=== PATIENT | male | born 1945 | race Caucasian/White ===

== ENCOUNTER → 2017-10-07 | Day surgery (SDC) | payer OTHER ==
[~2017-10-07] VITALS: Ht 182.9 cm; Wt 109.7 kg
[~2017-10-07] MED LIST: AMLO10TA2 PO; ASPI81CH6 CHEW; ATOR80TA45 PO; BENA40TA PO; CHLORHEXIDINE GLUCONATE 2 % 1 PACK (2 CLOTHS) TOPICAL PRN; CHOL1TAB41 PO; CO Q100C9 PO; CORACAP PO; DHEA50TA PO; FLAX1000 PO; FOLI800T PO; FURO20TA PO; GARL1000 PO; GLIM2TAB PO; GLUC500T4 PO; LACTATED RINGER'S 1000 ML IV PRN; LECI12002 PO; METF1000 PO; METO100T PO; METOPROLOL TARTRATE 25 MG TAB PO PRN; OCUVTAB PO; OMEGCAP PO; POVIDONE IODINE 5% (ANTISEPSIS KIT) 4 APPLICATIONS EACH NARE PRN; ROYA1CAP2 PO; SAWCAP2 PO; SITA1TAB2 PO; SODIUM CHLORID 0.9% 500 ML IV PRN; TAMS0.4C4 PO; VITA100T54 PO; VITA500T83 PO; WARF-21 PO; WARF-23 PO; ceFAZolin 2 GM PREMIX 50 ML IV ONE
[2017-10-07 13:54] VITALS: BP 133/68; PULSE 111; RESP 20; TEMP 98.5; O2SAT 97
[2017-10-07 14:03] LABS: AUTOMATED NEUTROPHIL # 5.8 TH/MM3 (1.8-7.7); BASOPHIL % 0.5 % (0.0-2.0); EOSINOPHIL # 0.2 TH/MM3 (0-0.4); HEMATOCRIT 40.1 % (39.0-51.0); HEMOGLOBIN 13.2 GM/DL (13.0-17.0); LYMPH % 10.6 % (9.0-44.0); LYMPHOCYTE # 0.8 TH/MM3 (1.0-4.8); MEAN CELL VOLUME 82.6 FL (80.0-100.0); MEAN CORPUSCULAR HEMOGLOBIN 27.2 PG (27.0-34.0); MEAN PLATELET VOLUME 8.4 FL (7.0-11.0); MONO % 9.2 % (0.0-8.0); MONOCYTE # 0.7 TH/MM3 (0-0.9); NEUT % 77.7 % (16.0-70.0); PLATELET COUNT 199 TH/MM3 (150-450); RED BLOOD COUNT 4.86 MIL/MM3 (4.50-5.90); RED CELL DISTRIBUTION WIDTH 15.2 % (11.6-17.2); WHITE BLOOD COUNT 7.4 TH/MM3 (4.0-11.0)
[2017-10-07 14:13] LABS: INTERNATIONAL NORMALIZED RATIO 1.1 RATIO; PROTHROMBIN TIME - PATIENT 11.2 SEC (9.8-11.6)
[2017-10-07 14:32] LABS: BICARBONATE 23.6 MEQ/L (21.0-32.0); CALCIUM 9.1 MG/DL (8.5-10.1); CREATININE 1.06 MG/DL (0.60-1.30)
--- NOTE | 2017-10-08 20:54 | EKG ---
Date Performed: 10/07/2017 Time Performed: 13:34:47 PTAGE: 71 years EKG: ATRIAL FIBRILLATION WITH RAPID VENTRICULAR RESPONSE ABNORMAL RHYTHM ECG NO PREVIOUS TRACING DOCTOR: Shai Dash Interpretating Date/Time 10/08/2017 20:52:36
== END | disposition home or self-care (01) ==
LOC: HSDC 12:44
PROVIDERS: ATTEND Surgery
DX: M79.9 Soft tissue disorder, unspecified (principal); I48.91 Unspecified atrial fibrillation; I10 Essential (primary) hypertension; E78.5 Hyperlipidemia, unspecified; Z53.9 Procedure and treatment not carried out, unspecified reason; E11.9 Type 2 diabetes mellitus without complications; Z79.84 Long term (current) use of oral hypoglycemic drugs; Z79.01 Long term (current) use of anticoagulants
CPT/HCPCS: 80048; 85025; 85610; 85730; 93005; G0463; 99211

== ENCOUNTER 2017-10-29 05:40 | Observation (INO) | payer OTHER ==
[~2017-10-29] VITALS: Ht 182.9 cm; Wt 109.5 kg
[~2017-10-29 05:40] MED LIST changes: -CHLORHEXIDINE GLUCONATE 2 % 1 PACK (2 CLOTHS) TOPICAL PRN; -LACTATED RINGER'S 1000 ML IV PRN; -METOPROLOL TARTRATE 25 MG TAB PO PRN; -POVIDONE IODINE 5% (ANTISEPSIS KIT) 4 APPLICATIONS EACH NARE PRN; -SODIUM CHLORID 0.9% 500 ML IV PRN; -ceFAZolin 2 GM PREMIX 50 ML IV ONE
[2017-10-29] MEDS ORDERED: CHLORHEXIDINE GLUCONATE 2 % 1 PACK (2 CLOTHS) TOPICAL PRN (06:30)
[2017-10-29] MEDS ORDERED: LACTATED RINGER'S 1000 ML IV PRN (06:30)
[2017-10-29] MEDS ORDERED: SODIUM CHLORID 0.9% 500 ML IV PRN (06:30)
[2017-10-29] MEDS ORDERED: POVIDONE IODINE 5% (ANTISEPSIS KIT) 4 APPLICATIONS EACH NARE PRN (06:30)
[2017-10-29] MEDS ORDERED: ceFAZolin 2 GM in NS 100 ML IV SCH (06:30)
[2017-10-29] MEDS ORDERED: METOPROLOL TARTRATE 25 MG TAB PO PRN (06:30)
[2017-10-29 06:54] LABS: INTERNATIONAL NORMALIZED RATIO 1.1 RATIO; PROTHROMBIN TIME - PATIENT 10.9 SEC (9.8-11.6)
[2017-10-29] MEDS ORDERED: ACETAMINOPHEN 1000 MG/100 ML 100 ML IV ONE (07:00)
[2017-10-29] MEDS ORDERED: BUPIVACAINE/EPINEPHRINE 0.5% 50 ML VIAL ONE (07:06)
[2017-10-29] MEDS ORDERED: LIDOCAINE 1%/EPINEPHrine 1:100,000 SOLN 30 ML VIAL ONE (07:07)
[2017-10-29] MEDS ORDERED: BUPIVACAINE LIPOSO PF 1.3% INJ 20 ML in SODIUM CHLORIDE 0.9% INJ 40 ML IRRIGATION SCH (08:45)
[2017-10-29] MEDS ORDERED: ACETAMINOPHEN/HYDROcodone 325 MG/5 MG TAB PO PRN (11:00)
[2017-10-29] MEDS ORDERED: ONDANSETRON HCL 4 MG/2 ML VIAL IV PUSH PRN (11:00)
[2017-10-29] MEDS ORDERED: KETOROLAC TROMETHAMINE 30 MG/ML (IVP) VIAL IVP PRN (11:00)
[2017-10-29] MEDS ORDERED: Post-op Orders (for Pharmacy) XX ONE (11:00)
[2017-10-29] MEDS: SODIUM CHLORIDE 0.9% FLUSH 10 ML FLUSH IV FLUSH SCH ×2 (11:00→20:39)
[2017-10-29] MEDS ORDERED: SODIUM CHLORIDE 0.9% FLUSH 10 ML FLUSH IV FLUSH PRN (11:00)
[2017-10-29] MEDS ORDERED: DO NOT ADM ANY ANTICOAGULANT DRUGS PRN (11:06)
[2017-10-29] MEDS ORDERED: DEXTROSE 50% IN WATER 50 ML VIAL(D50) IV PUSH PRN (11:15)
[2017-10-29] MEDS ORDERED: GLUCAGON 1 MG/ML VIAL OTHER PRN (11:15)
--- NOTE | 2017-10-29 11:54 | MP ---
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 PROCEDURE PERFORMED: 1. 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 2. Placement of radiographic markers. ATTENDING SURGEON: Jonathan Cui MD HOME APPLIANCE TECHNICIAN: OR staff. ANESTHESIA: General and local anesthetic with Exparel. ESTIMATED BLOOD LOSS: 100 mL COMPLICATIONS: None. FINDINGS: A 22 x 13 x 7 cm soft tissue mass resection maintained outside of the pseudocapsule plane of the tumor, grossly complete resection. Tumor involving gluteus minimus muscle, partially resected, not involving gluteus lon muscle, not involving sciatic nerve or any vascular structures, not involving bone or piriformis muscles. INDICATION FOR PROCEDURE: The patient is a 72-year-old male who states that he has had swelling of his right buttock for several years, per history. He underwent evaluation by his primary care doctor and was referred to general surgery. Further workup including MRI was concerning for possible soft tissue malignancy. The staging CT scan of the chest was negative. After discussion with the patient about the options including a biopsy as well as adjuvant versus neoadjuvant radiation, as well as upfront resection, he elected to undergo upfront resection of the tumor and forego biopsy for resection and definitive diagnosis. This was done as the patient was having symptoms from the mass as well including soreness and discomfort with sitting and daily activities. The risks, benefits, alternatives were discussed and he agreed to undergo the procedure. DESCRIPTION OF PROCEDURE: The patient taken to the operating room and placed in a supine position, placed under general endotracheal anesthesia. The patient was placed in the left lateral decubitus position. The right buttock, hip, groin and thigh were shaved, prepped and draped in sterile fashion. Timeout was performed. Local anesthetic with Marcaine was instilled in the incision. At the end of the surgery, of note, Exparel was also instilled in the incision site. A 15 cm incision was made lateral over the hip from the ASIS level down to just below the hip greater trochanter. This was done with a 15 blade scalpel. Bovie electrocautery was used to dissect the subcutaneous tissue and to go down to the gluteus lon. Some attachments of the gluteus lon were divided medially and retracted laterally. This exposed the gluteus minimus, and the tumor was easily visualized at this time. It was very mobile and not involving sciatic nerve or any vascular structures. It was fairly stuck to the surrounding musculature and this musculature was taken using the EnSeal device to assure good hemostasis, staying outside of the pseudocapsular margin throughout the resection. We completely resected the tumor marked with a long stitch lateral and a short stitch superior. This was passed off for permanent processing. The cavity was irrigated out with sterile water until all suctioning was clear. We had excellent hemostasis. We placed large Hemoclips, several of them, throughout the resection cavity to cadence the tumor borders. We did, again, at this point in time close the of the gluteus, which was basically the gluteus lon tendon. We placed a 19 Romanian round Claude drain through a separate stab incision with the drain transversely in the fascia as well to drain the deep and superficial space. We sutured it in place with a nylon suture. We closed the superficial fascia of the gluteus with a running 2-0 Vicryl suture. We closed the skin with 3-0 Vicryl, 4-0 Monocryl and a traverse airtight dressing. The bulb was placed to bulb suction. The patient at this point in time was transferred back to supine position and was transferred to the PACU in stable condition and extubated. The patient tolerated the procedure well. No apparent complications. All counts were correct. I was present and scrubbed for the entire procedure. MD SELWYN Millan/BESSIE , 11:11 AM , 11:52 AM
[2017-10-29] MEDS ORDERED: PROPOFOL 200 MG/20 ML AMP IV ONE (12:00)
[2017-10-29] MEDS: INSULIN NovoLIN REGULAR SUPPLEMENTAL SCALE SQ SCH ×3 (12:00→20:38)
[2017-10-29] MEDS ORDERED: LACTATED RINGER'S 1000 ML INJ 1,000 ML IV ONE (12:00)
[2017-10-29] MEDS ORDERED: ePHEDrine/NS 25 MG/5 ML SYRINGE IV ONE (12:00)
[2017-10-29] MEDS ORDERED: SUCCINYLCHOLINE CHLORIDE 200 MG/10 ML VIAL IV ONE (12:00)
[2017-10-29] MEDS ORDERED: PHENYLEPHRINE HCL 10 MG/ML VIAL IV ONE (12:00)
[2017-10-29] MEDS ORDERED: PHENYLEPH/NS 1000 MCG/10 ML SYR IV ONE (12:00)
[2017-10-29] MEDS ORDERED: LIDOCAINE HCL 1% PF 5 ML SYRINGE OTHER ONE (12:00)
[2017-10-29] MEDS ORDERED: HYDROmorphone HCL PF 0.5 MG/0.5 ML SYRINGE IV PUSH PRN (12:15)
[2017-10-29] MEDS: ACETAMINOPHEN/HYDROcodone 325 MG/5 MG TAB PO PRN ×2 (12:58→22:21)
[2017-10-29] MEDS: SODIUM CHLOR 0.9% 1000 ML INJ 1,000 ML IV SCH ×2 (14:00→16:39)
[2017-10-29 16:00] VITALS: BP 133/84; PULSE 95; RESP 18; TEMP 97.8; O2SAT 98
[2017-10-29 20:00] VITALS: BP 138/82; PULSE 95; RESP 18; TEMP 97.7; O2SAT 100
[2017-10-29] MEDS: METOPROLOL TARTRATE 100 MG TAB PO SCH (20:14)
[2017-10-29] MEDS ORDERED: TAMSULOSIN HCL 0.4 MG CAP PO SCH (21:00)
[2017-10-29] MEDS ORDERED: diphenhydrAMINE HCL 25 MG CAP PO ONE (22:15)
[2017-10-29] MEDS ORDERED: MELATONIN 5 MG TAB PO ONE ×2 (22:15→22:30)
[2017-10-30] VITALS: BP 140/80; PULSE 92; RESP 18; TEMP 97.9; O2SAT 100
[2017-10-30 04:00] VITALS: BP 133/79; PULSE 99; RESP 18; TEMP 98.1; O2SAT 100
[2017-10-30 07:55] VITALS: BP 132/76; PULSE 101; RESP 18; TEMP 99.1; O2SAT 98
[2017-10-30] MEDS: SODIUM CHLOR 0.9% 1000 ML INJ 1,000 ML IV SCH (08:00)
[2017-10-30] MEDS: INSULIN NovoLIN REGULAR SUPPLEMENTAL SCALE SQ SCH (08:00)
[2017-10-30] MEDS: SODIUM CHLORIDE 0.9% FLUSH 10 ML FLUSH IV FLUSH SCH (08:33)
[2017-10-30] MEDS: METOPROLOL TARTRATE 100 MG TAB PO SCH (08:33)
[2017-10-30] MEDS ORDERED: FUROSEMIDE 20 MG TAB PO SCH (09:00)
[2017-10-30] MEDS ORDERED: LISINOPRIL 20 MG TAB PO SCH (09:00)
--- NOTE | 2017-10-30 09:30 | HHI.DS ---
Discharge Summary Admission Date Oct 29, 2017 at 11:00 Discharge Date: Oct 30, 2017 Admitting Diagnosis Brief History This is a 72 year old male POD1 radical resection of RIGHT gluteal soft tissue mass Significant Findings Laboratory Tests Test 10/29/17 06:35 PE at Discharge Alert and awake Cardio: RRR Resp: CTAB Abd: soft non tender RIGHT gluteal---incision c/d/i; dressing in place; ZEINAB with serosanguineous drainage Hospital Course This is a 72 year old male POD1 radical resection of RIGHT gluteal soft tissue mass. The patient was able to tolerate a regular diet. The patient's pain was controlled using oral pain medications. The patient is able ambulate independently. [facility] has been arranged. The patient restart his Coumadin on November 01. The patient will follow up on November 06 at 4PM. Pt Condition on Discharge: Good Discharge Disposition: Disch w/ Home Health Serv Discharge Instructions DIET: Follow Instructions for: As Tolerated, No Restrictions Activities you can perform: See Additionl Instruction Other Activity Instructions: Home health care to change bandage and monitor drain Restart Coumadin on FridayNovember 01 !! Cristiane Ohara/First Mami NELSON Oct 30, 2017 09:30
--- NOTE | 2017-10-30 10:19 | HHI.FF ---
Face to Face Verification Diagnosis: (1) Sarcoma of soft tissue Home Health Nursing Order: Wound care and dressing changes Nursing assessment with vital signs Instructions: Routine ZEINAB care ABD dressing over gluteal incision; change daily and PRN I have seen patient Dayne Sheffield on 10/30/17. My clinical findings support the need for the requested home health care services because: Limited ability to care for self High risk of falls I certify that my clinical findings support that this patient is homebound because: Post-op weakness Cristiane Ohara CONTROLLED ATMOSPHERIC FURNACE BRAZER/School Psychology Specialist CONTROLLED ATMOSPHERIC FURNACE BRAZER Oct 30, 2017 10:19
[2017-10-30] MEDS: ACETAMINOPHEN/HYDROcodone 325 MG/5 MG TAB PO PRN (11:29)
== END 2017-10-30 11:53 | disposition home or self-care (01) ==
LOC: HSDC 05:40 → HSDI 11:00 → N07B 16:09
PROVIDERS: ADMIT Surgery; ATTEND Surgery
DX: C49.5 Malignant neoplasm of connective and soft tissue of pelvis (principal); I25.10 Atherosclerotic heart disease of native coronary artery without angina pectoris; I25.2 Old myocardial infarction; I11.0 Hypertensive heart disease with heart failure; I50.9 Heart failure, unspecified; E78.5 Hyperlipidemia, unspecified; E66.9 Obesity, unspecified
CPT/HCPCS: 00400; 27047; 82948; 85610; 88309; C9290; G0378; J0131; J0330; J0690; J2370; J3010; J7030; J7120; 88305